=== PATIENT | female | born 1950 | race Two or more races ===

== ENCOUNTER 2022-11-09 18:53 | Emergency (ER) | payer OTHER ==
[~2022-11-09] VITALS: Ht 165.1 cm; Wt 76.7 kg
== END 2022-11-09 19:41 | disposition home or self-care (01) ==
LOC: ER 18:53
DX: S00.83XA Contusion of other part of head, initial encounter (principal); X58.XXXA Exposure to other specified factors, initial encounter; Y93.89 Activity, other specified; Y92.89 Other specified places as the place of occurrence of the external cause; Y99.9 Unspecified external cause status